=== PATIENT | female | born 1945 | race Caucasian/White ===

== ENCOUNTER → 2016-11-12 | Outpatient (CLI) | payer MEDICARE ==
--- NOTE | 2016-11-12 15:04 | REP ---
LEFT WRIST, FOUR VIEWS: HISTORY: Fall. There is a fracture of the distal radius. There is no dislocation. The joint spaces are normal in appearance. IMPRESSION: Fracture of the distal radius. Signed by Arthur Membreno MD 11/12/2016 04:00 P
== END ==
LOC: M ADAMS 13:06
PROVIDERS: ATTEND Physician Assistant Medical
DX: S52.502A Unspecified fracture of the lower end of left radius, initial encounter for closed fracture (principal); W19.XXXA Unspecified fall, initial encounter; Y92.9 Unspecified place or not applicable; Y99.9 Unspecified external cause status

== ENCOUNTER → 2016-11-23 | Outpatient (CLI) | payer MEDICARE ==
--- NOTE | 2016-11-25 19:45 | ECGEPIP ---
Stationary ECG Study [facility] Test Date: 2016-11-23 Pat Name: ASPEN ARCHER Department: Room: - Gender: F Chair Lift Operator: TRU : 1945 Requested By: Julien Bacon @ [facility] Order Number: [id number] Reading MD: Akil Jeffries Measurements Intervals [place] Rate: 62 P: 66 MS: 152 QRS: 63 QRSD: 118 T: 69 QT: 367 QTc: 375 Interpretive Statements SINUS RHYTHM WITH OCCASIONAL SUPRAVENTRICULAR PREMATURE COMPLEXES POSSIBLE RIGHT VENTRICULAR CONDUCTION DELAY NO PRIOR Electronically Signed On 11-25-2016 19:45:37 EDT by Akil Jeffries
== END ==
LOC: M EKG 15:08
PROVIDERS: ATTEND Orthopaedic Surgery
DX: I10 Essential (primary) hypertension (principal)

== ENCOUNTER 2017-03-19 11:27 | Emergency (ER) | payer MEDICARE ==
[~2017-03-19] VITALS: Ht 154.9 cm; Wt 54.5 kg
[2017-03-19] MEDS ORDERED: METH2.5TA (11:40)
[2017-03-19] MEDS ORDERED: CLON0.5T (11:40)
[2017-03-19] MEDS ORDERED: CEPH500C (11:40)
[2017-03-19] MEDS ORDERED: LISI10TA4 (11:40)
[2017-03-19] MEDS ORDERED: QUET1TAB8 (11:40)
[2017-03-19 13:31] LABS: BASO % 0.2 % (0.0-1.0); EOS % 0.3 % (0.0-3.0); IMMATURE GRANULOCYTE % 0.9 % (0-0); LYMPH # 1.8 10^3/uL (1.5-4.5); MEAN CORPUSCULAR HEMOGLOBIN 30.3 pg (27.0-33.0); MEAN CORPUSCULAR VOLUME 89.1 fl (80.0-96.0); MONO % 7.4 % (0.0-5.0); NEUTROPHILS # 10.1 10^3/uL (1.8-7.7); NEUTROPHILS % 77.2 % (36.0-66.0); PLATELET COUNT, AUTOMATED 337 10^3/uL (150-450); RED CELL DISTRIBUTION WIDTH 13.1 % (11.5-14.5); WHITE BLOOD COUNT 13.1 10^3/uL (4.0-10.0)
[2017-03-19 13:49] LABS: CONTROL LINE MONO INT CTR LINE PRESENT
[2017-03-19 13:58] LABS: ALBUMIN 3.5 GM/DL (3.2-5.2); ALBUMIN/GLOBULIN RATIO 0.95 (1.00-1.93); ALKALINE PHOSPHATASE 83 U/L (45-117); ALT/SGPT 16 U/L (12-78); ANION GAP 10 MEQ/L (8-16); AST/SGOT 10 U/L (7-37); BILIRUBIN,TOTAL 0.6 MG/DL (0.2-1.0); BLOOD UREA NITROGEN 12 MG/DL (7-18); CARBON DIOXIDE LEVEL 27 MEQ/L (21-32); CHLORIDE LEVEL 99 MEQ/L (98-107); CREATININE FOR GFR 0.55 MG/DL (0.55-1.02); GLOMERULAR FILTRATION RATE > 60.0 (>39); GLUCOSE, FASTING 98 MG/DL (83-110); POTASSIUM SERUM 4.1 MEQ/L (3.5-5.1); SODIUM LEVEL 136 MEQ/L (136-145); TOTAL PROTEIN 7.2 GM/DL (6.4-8.2)
[2017-03-19] MEDS ORDERED: ISOVUE-370 76% 100ML VIAL (Q9967) As Ordered ONE (14:10)
--- NOTE | 2017-03-19 14:17 | REP ---
REASON FOR EXAM: Pyrexia. COMPARISON: 01/26/2013. FINDINGS: The superior mediastinal structures are midline. The cardiac silhouette is unremarkable in size, shape, and position. The diaphragmatic surfaces of the lungs are regular, and the costophrenic angles are clear. The pulmonary vasques are clear. The imaged osseous structures are intact. IMPRESSION: There is no acute cardiopulmonary disease. No change from the prior exam. Mild fibrotic changes status quo. Signed by Lang Gilbert DO 03/19/2017 02:25 P
[2017-03-19] MEDS ORDERED: ZITHTAB PO (16:49)
[2017-03-19] MEDS ORDERED: PROAAER10 INH (16:49)
[2017-03-19] MEDS ORDERED: PRED20TA PO (16:49)
[2017-03-19 16:59] VITALS: BP 151/74
--- NOTE | 2017-03-20 06:55 | REP ---
REASON: Pneumonia or malignancy. COMPARISON: None. CONTRAST: 100 mL Isovue 370. There is mediastinal adenopathy and borderline hilar lymph nodes. There are no pleural or pericardial effusions. The imaged upper abdomen is within normal limits. The imaged osseous structures are within normal limits. Evaluation of the lung vasques show asymmetric biapical nodular opacities. Scattered subcentimeter ground glass opacities are seen bilaterally. Scattered 3 and 4 mm sized nodules are seen bilaterally too numerous to count or individually assess. IMPRESSION: Findings as described above. Adenopathy and opacities. There is no revised Fleischner Society criteria on the recommendation for followup of such findings, however, since there is no prior for comparison, 3 month followup is suggested. Consider pulmonary consultation. Signed by Lang Gilbert DO 03/20/2017 08:55 A
--- NOTE | 2017-03-20 08:01 | ECGEPIP ---
Stationary ECG Study [facility] Test Date: 2017-03-19 Pat Name: ASPEN ARCHER Department: Room: - Gender: F Office Rep: christiano : 1945 Requested By: LENCHO Rashid PA-C Order Number: [id number] Reading MD: Thien Borrego Measurements Intervals [place] Rate: 93 P: 60 NV: 136 QRS: 61 QRSD: 100 T: 62 QT: 330 QTc: 411 Interpretive Statements SINUS RHYTHM INCOMPLETE RIGHT BUNDLE BRANCH BLOCK SIMILAR TO 11/23/16 Electronically Signed On 03-20-2017 8:01:03 EST by Thien Borrego
== END 2017-03-19 17:10 | disposition home or self-care (01) ==
LOC: M ED 11:27
DX: J44.0 Chronic obstructive pulmonary disease with (acute) lower respiratory infection (principal); I45.2 Bifascicular block; K21.9 Gastro-esophageal reflux disease without esophagitis; F41.9 Anxiety disorder, unspecified; F17.200 Nicotine dependence, unspecified, uncomplicated; Z79.899 Other long term (current) drug therapy
CPT/HCPCS: 71020; 71260; 80053; 85025; 86308; 87804; 93005; 99284; Q9967

== ENCOUNTER → 2018-12-07 | Outpatient (CLI) | payer MEDICARE ==
[~2018-12-07] MED LIST: CEPH500C; CLON0.5T2; LISI10TA4; METH2.5T48; PRED20TA PO; PROAAER10 INH; QUET1TAB8; ZITHTAB PO
--- NOTE | 2018-12-07 14:11 | REP ---
LEFT WRIST SERIES: Four views. HISTORY: Pain in the left wrist. Comparison left wrist radiographs are from November 12, 2016. FINDINGS: The previously noted distal radial fracture has been treated with a volar screw plate fixation device and appears healed. There is an ununited ulnar styloid chip fracture. No acute fracture is seen. There is diffuse osteopenia. IMPRESSION: Status post open reduction and volar screw plate fixation distal radial fracture which is healed. No acute bony abnormality. Electronically Signed by Carrillo John MD 12/07/2018 04:47 P
== END ==
LOC: M ADAMS 11:38
PROVIDERS: ATTEND Physician Assistant
DX: M25.532 Pain in left wrist (principal)

== ENCOUNTER 2021-12-27 09:42 | Emergency (ER) | payer MEDICARE ==
[~2021-12-27] VITALS: Ht 157.5 cm; Wt 54.5 kg
[~2021-12-27 09:42] MED LIST changes: +LISI10TA22; -LISI10TA4; +QUET100T2; -QUET1TAB8
[2021-12-27] MEDS ORDERED: ACETAMINOPHEN 500 MG TAB PO ONE (10:05)
[2021-12-27 10:12] LABS: VENOUS BASE EXCESS 0.1 (-2.0-2.0); VENOUS O2 SATURATION 87.3 % (60.0-80.0); VENOUS PARTIAL PRESSURE CO2 41.7 mmHg (38.0-50.0); VENOUS PARTIAL PRESSURE O2 53.3 mmHg (30.0-50.0); VENOUS PH 7.396 UNITS (7.330-7.430); VENOUS STANDARD HCO3 24.4 MEQ/L; VENOUS TOTAL CO2 26.3 MEQ/L (24.0-28.0)
[2021-12-27 10:15] LABS: BASO % 0.3 % (0.0-1.0); EOS % 0.5 % (0.0-3.0); HEMATOCRIT 33.3 % (36.0-47.0); LYMPH # 0.4 10^3/uL (1.5-5.0); LYMPH % 9.2 % (24.0-44.0); MEAN CORPUSCULAR HEMOGLOBIN 30.1 pg (27.0-33.0); MONO # 0.5 10^3/uL (0.0-0.8); MONO % 13.6 % (2.0-8.0); NEUTROPHILS # 2.9 10^3/uL (1.5-8.5); NEUTROPHILS % 76.1 % (36.0-66.0); PLATELET COUNT, AUTOMATED 214 10^3/uL (150-450); RED BLOOD COUNT 3.66 10^6/uL (4.00-5.40); WHITE BLOOD COUNT 3.8 10^3/uL (4.0-10.0)
[2021-12-27] MEDS ORDERED: CLON1TAB8 (10:26)
[2021-12-27 10:49] LABS: RSV AMPLIFICATION NEGATIVE (NEGATIVE)
[2021-12-27 10:56] LABS: ALBUMIN 3.8 GM/DL (3.2-5.2); BILIRUBIN,DIRECT 0.1 MG/DL (0.0-0.2); BILIRUBIN,TOTAL 0.3 MG/DL (0.2-1.0); CALCIUM LEVEL 8.9 MG/DL (8.8-10.2); CREATININE FOR GFR 0.98 MG/DL (0.55-1.30); GLOMERULAR FILTRATION RATE 58.7 (>39); POTASSIUM SERUM 4.2 MEQ/L (3.5-5.1); THYROID STIMULATING HORMONE 0.268 uIU/ML (0.358-3.740)
[2021-12-27] MEDS ORDERED: NS 1,000 ML IV ONE (11:35)
[2021-12-27 11:51] VITALS: O2SAT 95
[2021-12-27 13:15] VITALS: BP 121/58
[2021-12-29] MEDS ORDERED: CEFD300C PO (09:39)
== END 2021-12-27 13:45 | disposition home or self-care (01) ==
LOC: M ED 09:42
DX: U07.1 COVID-19 (principal); I10 Essential (primary) hypertension; F17.200 Nicotine dependence, unspecified, uncomplicated; Z79.811 Long term (current) use of aromatase inhibitors; Z79.899 Other long term (current) drug therapy

== ENCOUNTER → 2022-11-30 | Outpatient (CLI) | payer MEDICARE ==
[~2022-11-30] MED LIST changes: +CEFD300C PO; +CLON1TAB8; +ISOVUE-370 76% 100ML VIAL As Ordered ONE
== END ==
LOC: M RAD 12:50
PROVIDERS: ATTEND Physician Assistant Medical
DX: R22.1 Localized swelling, mass and lump, neck (principal)
CPT/HCPCS: 70491; Q9967

== ENCOUNTER → 2022-12-11 | Outpatient (CLI) | payer MEDICARE ==
[~2022-12-11] MED LIST changes: -CLON1TAB8; +CLON1TAB8 PO; +EQLTAB93 PO; -ISOVUE-370 76% 100ML VIAL As Ordered ONE; -LISI10TA22; +LISI10TA22 PO; +METH2.5T48 PO; -QUET100T2; +QUET100T2 PO
== END ==
LOC: M EKG 10:04
PROVIDERS: ATTEND Anesthesiology
DX: Z01.818 Encounter for other preprocedural examination (principal)

== ENCOUNTER 2022-12-16 08:11 | Day surgery (SDC) | payer MEDICARE ==
[~2022-12-16] VITALS: Ht 157.5 cm; Wt 60.5 kg
[2022-12-16] MEDS ORDERED: LR 1,000 ML IV SCH ×2 (08:35→11:30)
[2022-12-16] MEDS ORDERED: propofoL 200 MG/20 ML VIAL As Ordered ONE (09:48)
[2022-12-16] MEDS ORDERED: LIDOCAINE 2% 100MG/5ML SDV (FOR ANES.) As Ordered ONE (09:48)
[2022-12-16] MEDS ORDERED: ROCURONIUM BROMIDE 50MG/5ML VIAL As Ordered ONE (09:48)
[2022-12-16] MEDS ORDERED: MIDAZOLAM INJ 2MG/2ML VIAL As Ordered ONE (09:48)
[2022-12-16] MEDS ORDERED: fentaNYL 100 MCG/2 ML INJECTION As Ordered ONE (09:49)
[2022-12-16] MEDS ORDERED: OXYMETAZOLINE 0.05% NASAL SPRAY (AFRIN) As Ordered ONE (10:21)
[2022-12-16] MEDS ORDERED: LIDOCAINE W/EPINEPHRINE 1% 20ML VIAL As Ordered ONE (10:21)
[2022-12-16] MEDS ORDERED: DESFLURANE 240 ML INHALANT As Ordered ONE (10:57)
[2022-12-16] MEDS ORDERED: KETOROLAC 60MG 2ML VIAL As Ordered ONE (11:00)
[2022-12-16] MEDS ORDERED: ONDANSETRON 4MG 2ML VIAL As Ordered ONE (11:00)
[2022-12-16] MEDS ORDERED: SUGAMMADEX SODIUM 500 MG/5 ML VIAL (BRIDION) As Ordered ONE (11:05)
[2022-12-16] MEDS ORDERED: fentaNYL 100 MCG/2 ML INJECTION IV PRN (11:30)
[2022-12-16] MEDS ORDERED: oxyCODONE 5MG TAB PO PRN (11:30)
[2022-12-16] MEDS ORDERED: ONDANSETRON 4MG 2ML VIAL IV PRN (11:30)
[2022-12-16] MEDS ORDERED: HYDROMORPHONE HCL 0.5 MG/ 0.5 ML SYRINGE IV PRN (11:30)
[2022-12-16 12:40] VITALS: BP 166/70; TEMP 98.6; O2SAT 96
== END 2022-12-16 12:53 | disposition home or self-care (01) ==
LOC: M SDC 08:11
PROVIDERS: ATTEND Otolaryngology
DX: J38.1 Polyp of vocal cord and larynx (principal); I10 Essential (primary) hypertension; F41.9 Anxiety disorder, unspecified; F32.A Depression, unspecified; Z85.42 Personal history of malignant neoplasm of other parts of uterus; Z92.21 Personal history of antineoplastic chemotherapy; Z79.899 Other long term (current) drug therapy; F17.210 Nicotine dependence, cigarettes, uncomplicated
CPT/HCPCS: 31540; 88305; J1100; J1885; J2250; J2405; J3010

== ENCOUNTER → 2023-11-29 | Outpatient (CLI) | payer MEDICARE, MEDICAID | LOC: M RAD 10:20 | PROVIDERS: ATTEND Family Medicine | DX: Z12.2 Encounter for screening for malignant neoplasm of respiratory organs (principal); F17.210 Nicotine dependence, cigarettes, uncomplicated; R91.8 Other nonspecific abnormal finding of lung field; I70.0 Atherosclerosis of aorta; I25.10 Atherosclerotic heart disease of native coronary artery without angina pectoris; N20.0 Calculus of kidney ==

== ENCOUNTER 2024-03-14 09:31 | Inpatient (IN) | payer MEDICARE, MEDICAID ==
[2024-03-14] VITALS (10 sets, daily range): BP systolic 115–119; BP diastolic 54–58; TEMP 97.2–98.5; O2SAT 75–96
[~2024-03-14] VITALS: Ht 154.9 cm; Wt 62.5 kg
[2024-03-14 10:07] LABS: BASO # 0.1 10^3/uL (0.0-0.2); BASO % 0.5 % (0.0-1.0); EOS % 0.2 % (0.0-3.0); HEMATOCRIT 38.7 % (36.0-47.0); HEMOGLOBIN 12.6 g/dl (12.0-15.5); LYMPH # 1.3 10^3/uL (1.5-5.0); LYMPH % 8.9 % (24.0-44.0); MEAN CORPUSCULAR HEMOGLOBIN 29.6 pg (27.0-33.0); MEAN CORPUSCULAR HGB CONC 32.6 g/dl (32.0-36.5); MEAN CORPUSCULAR VOLUME 91.1 fl (80.0-96.0); MONO # 0.6 10^3/uL (0.0-0.8); MONO % 3.9 % (2.0-8.0); NEUTROPHILS # 12.1 10^3/uL (1.5-8.5); NEUTROPHILS % 85.6 % (36.0-66.0); PLATELET COUNT, AUTOMATED 273 10^3/uL (150-450); RED BLOOD COUNT 4.25 10^6/uL (4.00-5.40); WHITE BLOOD COUNT 14.1 10^3/uL (4.0-10.0)
[2024-03-14] MEDS: NS 500 ML IV ONE ×2 (10:20→12:44)
[2024-03-14] MEDS: ONDANSETRON 4MG 2ML VIAL IV ONE (10:20)
[2024-03-14 10:39] LABS: ALBUMIN 2.7 G/DL (3.2-5.2); BILIRUBIN,DIRECT 0.3 MG/DL (<0.4); BILIRUBIN,TOTAL 0.7 MG/DL (0.3-1.2); CALCIUM LEVEL 9.8 MG/DL (8.3-10.6); CREATININE FOR GFR 1.75 MG/DL (0.55-1.30); GLOMERULAR FILTRATION RATE 29.9 (>39); POTASSIUM SERUM 4.6 MMOL/L (3.5-5.1); TOTAL PROTEIN 6.1 G/DL (5.7-8.2)
[2024-03-14 10:54] LABS: ABG HCO3 21.3 MMOL/L (22.0-26.0); ABG O2 SATURATION 84.7 % (95.0-99.0); ABG PARTIAL PRESSURE CO2 31.5 mmHg (35.0-45.0); ABG PARTIAL PRESSURE O2 50.2 mmHg (75.0-100.0); ABG STANDARD HCO3 22.5 MMOL/L. (22.0-26.0); ABG TOTAL CO2 22.2 MMOL/L (23.0-31.0); ABG pH (ARTERIAL) 7.447 UNITS (7.350-7.450)
[2024-03-14] MEDS ORDERED: ACET-683 PO (13:31)
[2024-03-14] MEDS ORDERED: OMEP-173 PO (13:31)
[2024-03-14] MEDS ORDERED: FOLI1TAB11 PO (13:31)
[2024-03-14] MEDS ORDERED: PRED10TA2 PO (13:31)
[2024-03-14] MEDS: NS 1,000 ML IV ONE (13:34)
[2024-03-14] MEDS ORDERED: HOME MED LIST COMPLETE! XX SCH (13:35)
[2024-03-14] MEDS: IPRATROPIUM 0.5MG/ALBUTEROL 2.5MG INH SOL UD 3ML (DUONEB) NEB ONE (14:05)
[2024-03-14] MEDS ORDERED: clonazePAM 1 MG TAB PO PRN (14:30)
[2024-03-14] MEDS ORDERED: CETIRIZINE (ZyrTEC) 10 MG TAB PO PRN (14:30)
[2024-03-14] MEDS ORDERED: ACETAMINOPHEN 500 MG TAB PO PRN (14:30)
[2024-03-14] MEDS: NS 1,000 ML IV SCH (15:07)
[2024-03-14 15:40] LABS: THYROID STIMULATING HORMONE 0.326 uIU/ML (0.55-4.78)
[2024-03-14 15:49] LABS: PROCALCITONIN 1.39 ng/ml
[2024-03-14] MEDS: HYDROCORTISONE 100MG/2ML VIAL IV ONE (17:36)
[2024-03-14 19:59] LABS: FREE T3 2.3 PG/ML (2.3-4.2); FREE T4 1.61 NG/DL (0.89-1.76)
[2024-03-14] MEDS: cefTRIAXone SOD 1 GM in DEXTROSE 5% (D5W) ADV/MINI-BAG 50 ML IV SCH (20:21)
[2024-03-14] MEDS: AZITHROMYCIN 250MG TABLET PO SCH (20:21)
[2024-03-14] MEDS: HEPARIN SOD (PORCINE) 5000UNITS/ML 1ML VIAL/SYRINGE SC SCH (21:38)
[2024-03-15 04:11] VITALS: BP 119/66; TEMP 97.7; O2SAT 96
[2024-03-15 06:30] LABS: HEMATOCRIT 30.1 % (36.0-47.0); MEAN CORPUSCULAR HGB CONC 32.6 g/dl (32.0-36.5); PLATELET COUNT, AUTOMATED 214 10^3/uL (150-450); RED BLOOD COUNT 3.27 10^6/uL (4.00-5.40); WHITE BLOOD COUNT 9.8 10^3/uL (4.0-10.0)
[2024-03-15 06:31] LABS: HEMOGLOBIN 9.8 g/dl (12.0-15.5)
[2024-03-15 06:38] LABS: CALCIUM LEVEL 8.4 MG/DL (8.3-10.6); CREATININE FOR GFR 1.11 MG/DL (0.55-1.30); GLOMERULAR FILTRATION RATE 50.6 (>39); POTASSIUM SERUM 4.4 MMOL/L (3.5-5.1)
[2024-03-15 07:45] LABS: PROCALCITONIN 0.8 ng/ml
[2024-03-15 08:00] VITALS: BP 136/60; TEMP 97.5; O2SAT 93
[2024-03-15] MEDS: OMEPRAZOLE 20MG CAP PO SCH (09:09)
[2024-03-15] MEDS: predniSONE 20 MG TAB PO SCH (09:09)
[2024-03-15] MEDS: FOLIC ACID 1MG TAB PO SCH (09:09)
[2024-03-15] MEDS ORDERED: PILL CUTTER 1 EACH XX ONE (09:12)
[2024-03-15] MEDS: QUEtiapine FUMARATE 100 MG TAB PO SCH (09:13)
[2024-03-15 12:00] VITALS: BP 118/56; TEMP 98.1; O2SAT 97
[2024-03-15 16:25] VITALS: BP 126/61; TEMP 97.4; O2SAT 94
[2024-03-15] MEDS: ONDANSETRON 4MG 2ML VIAL IV PRN (17:33)
[2024-03-15 20:01] VITALS: BP 131/87; TEMP 97.4; O2SAT 97
[2024-03-16 03:13] VITALS: BP 134/65; TEMP 96.9; O2SAT 94
[2024-03-16 04:15] VITALS: O2SAT 85
[2024-03-16 04:27] VITALS: O2SAT 92
[2024-03-16 04:57] LABS: BASO % 0.3 % (0.0-1.0); EOS % 0.1 % (0.0-3.0); HEMATOCRIT 29.5 % (36.0-47.0); HEMOGLOBIN 9.5 g/dl (12.0-15.5); LYMPH # 1.7 10^3/uL (1.5-5.0); LYMPH % 19.4 % (24.0-44.0); MEAN CORPUSCULAR HEMOGLOBIN 29.9 pg (27.0-33.0); MEAN CORPUSCULAR HGB CONC 32.2 g/dl (32.0-36.5); MEAN CORPUSCULAR VOLUME 92.8 fl (80.0-96.0); MONO # 0.5 10^3/uL (0.0-0.8); NEUTROPHILS # 6.4 10^3/uL (1.5-8.5); NEUTROPHILS % 73.6 % (36.0-66.0); PLATELET COUNT, AUTOMATED 231 10^3/uL (150-450); RED BLOOD COUNT 3.18 10^6/uL (4.00-5.40); WHITE BLOOD COUNT 8.7 10^3/uL (4.0-10.0)
[2024-03-16 05:13] LABS: BLOOD UREA NITROGEN 28 MG/DL (9-23); CALCIUM LEVEL 9.2 MG/DL (8.3-10.6); CARBON DIOXIDE LEVEL 22 MMOL/L (20-31); CHLORIDE LEVEL 112 MMOL/L (98-107); CREATININE FOR GFR 0.91 MG/DL (0.55-1.30); GLOMERULAR FILTRATION RATE > 60.0 (>39); GLUCOSE, FASTING 92 MG/DL (74-106); POTASSIUM SERUM 4.2 MMOL/L (3.5-5.1); SODIUM LEVEL 142 MMOL/L (136-145)
[2024-03-16 08:00] VITALS: BP 153/66; TEMP 97; O2SAT 95
[2024-03-16 08:31] VITALS: BP 148/65; TEMP 97.1; O2SAT 93
[2024-03-16] MEDS ORDERED: AZIT-12 PO (10:52)
[2024-03-16] MEDS ORDERED: PRED20TA PO (10:52)
[2024-03-16] MEDS ORDERED: CEFD300CAP PO (10:52)
[2024-03-17 17:17] LABS: FUNGITELL INTERPRETATION POSITIVE (NEGATIVE); FUNGITELL, SERUM > 500 pg/mL (<60)
[2024-03-18 20:52] LABS: URINE STREP PNEUMONIAE ANTIGEN NOT DETECTED (NOT DETECT)
== END 2024-03-16 14:32 | disposition home or self-care (01) | DRG 683 ==
LOC: EDBD 09:31 → M ED 09:31 → M ED INP 14:30 → M PCU 15:30
PROVIDERS: ADMIT Internal Medicine; ATTEND Internal Medicine
PROC: B246ZZZ Ultrasonography of Right and Left Heart (ICD-10-PCS; principal; 2024-03-15)
DX: N17.9 Acute kidney failure, unspecified (principal); E87.20 Acidosis, unspecified; J84.9 Interstitial pulmonary disease, unspecified; J67.9 Hypersensitivity pneumonitis due to unspecified organic dust; D84.9 Immunodeficiency, unspecified; J21.9 Acute bronchiolitis, unspecified; J96.11 Chronic respiratory failure with hypoxia; L40.50 Arthropathic psoriasis, unspecified; M35.3 Polymyalgia rheumatica; I10 Essential (primary) hypertension; F39 Unspecified mood [affective] disorder; K21.9 Gastro-esophageal reflux disease without esophagitis; R63.0 Anorexia; K80.20 Calculus of gallbladder without cholecystitis without obstruction; Z79.52 Long term (current) use of systemic steroids; Z79.899 Other long term (current) drug therapy; I27.20 Pulmonary hypertension, unspecified; A08.4 Viral intestinal infection, unspecified; F17.210 Nicotine dependence, cigarettes, uncomplicated; E86.0 Dehydration

== ENCOUNTER 2024-05-17 09:41 | Emergency (ER) | payer MEDICARE, MEDICAID ==
[~2024-05-17 09:41] MED LIST changes: +ACET-683 PO; +AZIT-12 PO; +CEFD300CAP PO; +FOLI1TAB11 PO; +OMEP-173 PO; +PRED10TA2 PO
[2024-05-17 09:57] VITALS: TEMP 97.5
[2024-05-17 10:41] VITALS: O2SAT 93
[2024-05-17 10:45] VITALS: BP 110/56
[2024-05-17] MEDS: KETOROLAC 30 MG/ML 1ML VIAL IM ONE (13:03)
== END 2024-05-17 13:10 | disposition home or self-care (01) ==
LOC: M ED 09:41 → EDBD 09:41 → M ED 13:10
DX: S70.01XA Contusion of right hip, initial encounter (principal); S30.0XXA Contusion of lower back and pelvis, initial encounter; W01.0XXA Fall on same level from slipping, tripping and stumbling without subsequent striking against object, initial encounter; Y92.009 Unspecified place in unspecified non-institutional (private) residence as the place of occurrence of the external cause; Y93.89 Activity, other specified; Y99.9 Unspecified external cause status; M51.26 Other intervertebral disc displacement, lumbar region; I10 Essential (primary) hypertension; M43.17 Spondylolisthesis, lumbosacral region; M48.07 Spinal stenosis, lumbosacral region; Z79.899 Other long term (current) drug therapy
CPT/HCPCS: 72131; 73521; 73700; 96372; 99284; J1885

== ENCOUNTER 2024-08-02 07:43 | Emergency (ER) | payer MEDICAID, MEDICARE ==
[~2024-08-02] VITALS: Ht 154.9 cm; Wt 55.3 kg
[2024-08-02 08:00] VITALS: BP 166/78; TEMP 97.1; O2SAT 97
[2024-08-02] MEDS: NS 500 ML IV ONE ×2 (08:30→12:27)
[2024-08-02 09:05] LABS: BASO % 0.9 % (0.0-1.0); EOS % 0.6 % (0.0-3.0); HEMATOCRIT 41.2 % (36.0-47.0); LYMPH # 1.4 10^3/uL (1.5-5.0); LYMPH % 30.2 % (24.0-44.0); MEAN CORPUSCULAR HGB CONC 31.6 g/dl (32.0-36.5); MONO # 0.4 10^3/uL (0.0-0.8); MONO % 7.8 % (2.0-8.0); NEUTROPHILS # 2.8 10^3/uL (1.5-8.5); NEUTROPHILS % 60.3 % (36.0-66.0); PLATELET COUNT, AUTOMATED 268 10^3/uL (150-450); RED BLOOD COUNT 4.48 10^6/uL (4.00-5.40); WHITE BLOOD COUNT 4.6 10^3/uL (4.0-10.0)
[2024-08-02 09:19] LABS: INR 1.02; PARTIAL THROMBOPLASTIN TIME 31.3 SECONDS (24.8-34.2); PROTHROMBIN TIME 13.7 SECONDS (12.5-14.5)
[2024-08-02 09:22] LABS: KETONE, URINE AUTO RFX 2+ mg/dL (NEGATIVE); LEUKOCYTE ESTERASE UR AUTO RFX NEGATIVE (NEGATIVE); MUCUS, URINE RFX SMALL (NEGATIVE); NITRITE, URINE AUTO RFX NEGATIVE (NEGATIVE); RBC, URINE AUTO RFX 0 /HPF (0-3); SQUAM EPITHELIAL CELL UR AURFX 1 /HPF (0-6); WBC, URINE AUTO RFX 2 /HPF (0-3)
[2024-08-02] MEDS ORDERED: ISOVUE-370 76% 100ML VIAL As Ordered ONE (09:24)
[2024-08-02 09:32] LABS: LIPASE 51 U/L (12-53)
[2024-08-02 09:34] LABS: AMYLASE 79 U/L (30-118)
[2024-08-02 09:35] LABS: ALBUMIN 3.6 G/DL (3.2-5.2); ALKALINE PHOSPHATASE 197 U/L (35-104); ALT/SGPT 12 U/L (7.0-40); AST/SGOT 21 U/L (<34); BILIRUBIN,DIRECT 0.2 MG/DL (<0.4); BILIRUBIN,TOTAL 0.5 MG/DL (0.3-1.2); BLOOD UREA NITROGEN 17 MG/DL (9-23); CARBON DIOXIDE LEVEL 23 MMOL/L (20-31); CHLORIDE LEVEL 104 MMOL/L (98-107); CK-MB VALUE MASS < 1.0 NG/ML (<3.6); CREATININE FOR GFR 0.67 MG/DL (0.55-1.30); GLOMERULAR FILTRATION RATE 88.9 (>39); GLUCOSE, FASTING 61 MG/DL (74-106); POTASSIUM SERUM 3.9 MMOL/L (3.5-5.1); SODIUM LEVEL 139 MMOL/L (136-145); TOTAL PROTEIN 6.5 G/DL (5.7-8.2)
[2024-08-02 09:48] LABS: CPK CREATINE PHOSPHOKINASE 27 U/L (34-145)
[2024-08-02 10:24] LABS: CK-MB VALUE MASS < 1.0 NG/ML (<3.6)
[2024-08-02 10:35] LABS: CPK CREATINE PHOSPHOKINASE 20 U/L (34-145)
[2024-08-02] MEDS: DEXTROSE 50% 50ML SYRINGE IV STA (12:27)
[2024-08-02] MEDS ORDERED: PRED5PAK2 PO (13:29)
[2024-08-02] MEDS ORDERED: HOME MED LIST COMPLETE! XX SCH (13:30)
[2024-08-02] MEDS ORDERED: PIPERACILLIN/TAZOBACTAM SOD 3.375 GM in DEXTROSE 5% (D5W) ADV/MINI-BAG 50 ML IV ONE (14:05)
== END 2024-08-02 14:56 | disposition home or self-care (01) ==
LOC: M ED 07:43 → EDBD 07:43 → M ED 14:56
DX: K52.89 Other specified noninfective gastroenteritis and colitis (principal); R07.89 Other chest pain; F41.9 Anxiety disorder, unspecified; F32.A Depression, unspecified; F17.210 Nicotine dependence, cigarettes, uncomplicated; Z79.1 Long term (current) use of non-steroidal anti-inflammatories (NSAID); Z79.52 Long term (current) use of systemic steroids; Z79.899 Other long term (current) drug therapy
CPT/HCPCS: 71275; 74177; 80047; 80048; 80076; 81001; 82150; 82550; 82553; 83605; 83690; 84484; 85025; 85610; 85730; 86850; 86900; 86901; 93005; 93041; 94760; 96361; 96374; 99284; Q9967

== ENCOUNTER → 2024-10-26 | Outpatient (CLI) | payer MEDICARE, MEDICAID ==
[~2024-10-26] MED LIST changes: +PRED5PAK2 PO
== END ==
LOC: M WHC 11:34
PROVIDERS: ATTEND Family Medicine
DX: Z12.31 Encounter for screening mammogram for malignant neoplasm of breast (principal); R92.323 Mammographic fibroglandular density, bilateral breasts